=== PATIENT | male | born 1970 | race Caucasian/White ===

== ENCOUNTER 2022-10-30 08:58 | Emergency (ER) | payer SELFPAY ==
[~2022-10-30] VITALS: Ht 185.4 cm; Wt 76.0 kg
[2022-10-30 08:59] VITALS: BP 138/102; TEMP 97.2; O2SAT 99
== END 2022-10-30 10:10 | disposition left against medical advice (07) ==
LOC: M ED 08:58
DX: Z53.21 Procedure and treatment not carried out due to patient leaving prior to being seen by health care provider (principal)

== ENCOUNTER 2022-10-30 12:04 | Emergency (ER) | payer OTHER, SELFPAY ==
[~2022-10-30] VITALS: Ht 185.4 cm; Wt 80.5 kg
[2022-10-30 12:04] VITALS: TEMP 97.8
[2022-10-30 19:00] VITALS: BP 138/91; O2SAT 99
[2022-10-30] MEDS ORDERED: NS 1,000 ML IV ONE (19:30)
== END 2022-10-30 20:10 | disposition left against medical advice (07) ==
LOC: M ED 12:04
DX: F11.23 Opioid dependence with withdrawal (principal); I10 Essential (primary) hypertension; Z53.9 Procedure and treatment not carried out, unspecified reason

== ENCOUNTER 2023-07-27 10:28 | Day surgery (SDC) | payer OTHER ==
[~2023-07-27] VITALS: Ht 185.4 cm; Wt 69.0 kg
[~2023-07-27 10:28] MED LIST: BUPR8SUB SL; LOSA25TA13 PO; NS 1,000 ML IV ONE; OMEP40CA4 PO
[2023-07-27] MEDS ORDERED: propofoL 200 MG/20 ML VIAL As Ordered ONE (11:59)
[2023-07-27] MEDS ORDERED: ONDANSETRON 4MG 2ML VIAL As Ordered ONE (12:25)
[2023-07-27 12:47] VITALS: TEMP 98
[2023-07-27 13:10] VITALS: BP 138/76; O2SAT 100
== END 2023-07-27 13:32 | disposition home or self-care (01) ==
LOC: M OPP 10:28
PROVIDERS: ATTEND Internal Medicine Gastroenterology
DX: Z12.11 Encounter for screening for malignant neoplasm of colon (principal); D12.4 Benign neoplasm of descending colon; K63.5 Polyp of colon; K64.8 Other hemorrhoids; K64.4 Residual hemorrhoidal skin tags; K57.30 Diverticulosis of large intestine without perforation or abscess without bleeding; K21.00 Gastro-esophageal reflux disease with esophagitis, without bleeding; K29.70 Gastritis, unspecified, without bleeding; K31.A0 Gastric intestinal metaplasia, unspecified; K22.2 Esophageal obstruction; F17.200 Nicotine dependence, unspecified, uncomplicated; Z79.2 Long term (current) use of antibiotics; Z79.891 Long term (current) use of opiate analgesic; Z79.899 Other long term (current) drug therapy; Z88.1 Allergy status to other antibiotic agents
CPT/HCPCS: 43239; 43249; 45380; 45385; 88305; J2405

== ENCOUNTER → 2023-08-18 | Outpatient (CLI) | payer OTHER ==
[~2023-08-18] MED LIST changes: +ISOVUE-300 61% 100ML VIAL As Ordered ONE; +LIDOCAINE 1% MDV 20ML VIAL As Ordered ONE; -NS 1,000 ML IV ONE; +TRIAMCINOLONE ACETONIDE SUSP 40MG/ML 1ML VIAL As Ordered ONE
== END ==
LOC: M RAD 14:55
PROVIDERS: ATTEND Orthopaedic Surgery
DX: M19.021 Primary osteoarthritis, right elbow (principal)
CPT/HCPCS: 20605; 77002; J3301; Q9967

== ENCOUNTER → 2023-08-19 | Outpatient (CLI) | payer OTHER ==
[~2023-08-19] MED LIST changes: -ISOVUE-300 61% 100ML VIAL As Ordered ONE; -LIDOCAINE 1% MDV 20ML VIAL As Ordered ONE; -TRIAMCINOLONE ACETONIDE SUSP 40MG/ML 1ML VIAL As Ordered ONE
[2023-08-19 18:46] LABS: BASO % 0.1 % (0.0-1.0); EOS % 0.1 % (0.0-3.0); HEMATOCRIT 42.2 % (42.0-52.0); HEMOGLOBIN 13.9 g/dl (13.5-17.5); LYMPH # 1.8 10^3/uL (1.5-5.0); LYMPH % 14.7 % (24.0-44.0); MEAN CORPUSCULAR HEMOGLOBIN 27.8 pg (27.0-33.0); MEAN CORPUSCULAR HGB CONC 32.9 g/dl (32.0-36.5); MEAN CORPUSCULAR VOLUME 84.4 fl (80.0-96.0); MONO # 1.2 10^3/uL (0.0-0.8); MONO % 9.3 % (2.0-8.0); NEUTROPHILS # 9.4 10^3/uL (1.5-8.5); NEUTROPHILS % 75.4 % (36.0-66.0); PLATELET COUNT, AUTOMATED 342 10^3/uL (150-450); WHITE BLOOD COUNT 12.4 10^3/uL (4.0-10.0)
[2023-08-19 18:53] LABS: ERYTHROCYTE SEDIMENTATION RATE 12 mm/hr (0-20)
[2023-08-19 19:09] LABS: URIC ACID 4.1 MG/DL (3.7-9.2)
[2023-08-19 19:10] LABS: C REACTIVE PROTEIN QUANTITATIV < 0.40 MG/DL (<1.0)
[2023-08-19 19:14] LABS: RHEUMATOID FACTOR QUANT < 3.5 IU/ML (<14)
== END ==
LOC: M PLALAB 15:59
PROVIDERS: ATTEND Physician Assistant Surgical
DX: M51.34 Other intervertebral disc degeneration, thoracic region (principal)

== ENCOUNTER → 2023-12-09 | Outpatient (CLI) | payer OTHER ==
[2023-12-09 13:12] LABS: URIC ACID 5.9 MG/DL (3.7-9.2)
[2023-12-09 13:13] LABS: C REACTIVE PROTEIN QUANTITATIV < 0.40 MG/DL (<1.0)
[2023-12-09 13:15] LABS: BASO % 0.5 % (0.0-1.0); EOS # 0.1 10^3/uL (0.0-0.5); EOS % 1.5 % (0.0-3.0); HEMATOCRIT 39.6 % (42.0-52.0); HEMOGLOBIN 13.3 g/dl (13.5-17.5); LYMPH # 2.6 10^3/uL (1.5-5.0); LYMPH % 29.4 % (24.0-44.0); MEAN CORPUSCULAR HEMOGLOBIN 28.2 pg (27.0-33.0); MEAN CORPUSCULAR HGB CONC 33.6 g/dl (32.0-36.5); MEAN CORPUSCULAR VOLUME 83.9 fl (80.0-96.0); MONO # 0.8 10^3/uL (0.0-0.8); MONO % 9.6 % (2.0-8.0); NEUTROPHILS # 5.1 10^3/uL (1.5-8.5); NEUTROPHILS % 58.7 % (36.0-66.0); PLATELET COUNT, AUTOMATED 273 10^3/uL (150-450); RED BLOOD COUNT 4.72 10^6/uL (4.30-6.10); RHEUMATOID FACTOR QUANT < 3.5 IU/ML (<14); WHITE BLOOD COUNT 8.7 10^3/uL (4.0-10.0)
[2023-12-09 15:35] LABS: ERYTHROCYTE SEDIMENTATION RATE 7 mm/hr (0-20)
[2023-12-10 14:16] LABS: ANA SCREEN, IFA NEGATIVE (NEGATIVE)
[2023-12-11 02:22] LABS: IgG P18 AB REACTIVE; IgG P23 AB NON-REACTIVE; IgG P28 AB NON-REACTIVE; IgG P30 AB NON-REACTIVE; IgG P39 AB NON-REACTIVE; IgG P41 AB NON-REACTIVE; IgG P45 AB NON-REACTIVE; IgG P58 AB NON-REACTIVE; IgG P66 AB NON-REACTIVE; IgG P93 AB NON-REACTIVE; IgM P23 AB NON-REACTIVE; IgM P39 AB REACTIVE; IgM P41 AB NON-REACTIVE; LYME IgG WB INTERPRETATION NEGATIVE (NEGATIVE); LYME IgM WB INTERPRETATION NEGATIVE (NEGATIVE)
[2023-12-13 16:07] LABS: LYME TOTAL ANTIBODY CIA <= 0.90 Index (<=0.90)
== END ==
LOC: M PLALAB 10:02
PROVIDERS: ATTEND Physician Assistant
DX: M19.042 Primary osteoarthritis, left hand (principal)

== ENCOUNTER → 2023-12-10 | Outpatient (REF) | LOC: M PLAIMG 15:03 | PROVIDERS: ATTEND Internal Medicine | DX: R52 Pain, unspecified (principal) ==

== ENCOUNTER 2024-05-19 09:21 | Day surgery (SDC) | payer OTHER ==
[~2024-05-19] VITALS: Ht 185.4 cm; Wt 77.6 kg
[~2024-05-19 09:21] MED LIST changes: +IBUP200C25 PO; +LIDOCAINE 2% 100MG/5ML SDV (FOR ANES.) As Ordered ONE; +NS 250 ML IV ONE; +propofoL 200 MG/20 ML VIAL As Ordered ONE
[2024-05-19 11:10] VITALS: TEMP 99.1
[2024-05-19 11:32] VITALS: BP 125/80; O2SAT 97
== END 2024-05-19 11:39 | disposition home or self-care (01) ==
LOC: M OPP 09:21
PROVIDERS: ATTEND Internal Medicine Gastroenterology
DX: K22.4 Dyskinesia of esophagus (principal); K22.2 Esophageal obstruction; R12 Heartburn; R13.10 Dysphagia, unspecified; Z88.1 Allergy status to other antibiotic agents; Z79.899 Other long term (current) drug therapy; F17.210 Nicotine dependence, cigarettes, uncomplicated; F11.11 Opioid abuse, in remission
CPT/HCPCS: 43249; A4649

== ENCOUNTER 2025-04-09 08:00 | Emergency (ER) | payer MEDICAID, OTHER ==
[~2025-04-09] VITALS: Ht 185.4 cm; Wt 76.0 kg
[~2025-04-09 08:00] MED LIST changes: -LIDOCAINE 2% 100MG/5ML SDV (FOR ANES.) As Ordered ONE; -NS 250 ML IV ONE; -propofoL 200 MG/20 ML VIAL As Ordered ONE
[2025-04-09] MEDS: ONDANSETRON 4MG/2ML VIAL IV ONE (10:13)
[2025-04-09] MEDS: TETANUS/DIPHTH/ACEL. PERTUSSIS 0.5 ML SYR IM ONE (10:20)
[2025-04-09] MEDS: PANTOPRAZOLE 40MG VIAL IV ONE (10:50)
[2025-04-09 10:59] VITALS: TEMP 98.6
[2025-04-09 11:15] VITALS: BP 137/83; O2SAT 99
== END 2025-04-09 11:19 | disposition short-term general hospital (02) ==
LOC: M ED 08:00
DX: T18.190A Other foreign object in esophagus causing compression of trachea, initial encounter (principal); I10 Essential (primary) hypertension; K21.9 Gastro-esophageal reflux disease without esophagitis; F43.10 Post-traumatic stress disorder, unspecified; Z88.1 Allergy status to other antibiotic agents; Z79.1 Long term (current) use of non-steroidal anti-inflammatories (NSAID); Z79.899 Other long term (current) drug therapy
CPT/HCPCS: 71045; 74018; 80047; 96374; 96375; 99285; J2405; J2470; J3360

== ENCOUNTER 2025-04-11 21:21 | Emergency (ER) | payer OTHER ==
[~2025-04-11] VITALS: Ht 185.4 cm; Wt 73.6 kg
[~2025-04-11 21:21] MED LIST changes: -COLA100C5 PO
[2025-04-11 21:23] VITALS: TEMP 96.9
[2025-04-11] MEDS ORDERED: COLA100C5 PO (23:47)
[2025-04-11] MEDS: DOCUSATE SODIUM 100 MG CAPSULE PO ONE (23:56)
[2025-04-12] VITALS: BP 129/84; O2SAT 98
== END 2025-04-12 00:17 | disposition home or self-care (01) ==
LOC: M ED 21:21
DX: T18.8XXA Foreign body in other parts of alimentary tract, initial encounter (principal); F41.1 Generalized anxiety disorder; I10 Essential (primary) hypertension; Z88.1 Allergy status to other antibiotic agents; Z79.1 Long term (current) use of non-steroidal anti-inflammatories (NSAID); Z79.899 Other long term (current) drug therapy; Y92.009 Unspecified place in unspecified non-institutional (private) residence as the place of occurrence of the external cause; Y93.89 Activity, other specified; Y99.9 Unspecified external cause status

== ENCOUNTER → 2025-04-11 | Outpatient (CLI) | payer OTHER ==
[~2025-04-11] MED LIST changes: +COLA100C5 PO
== END ==
LOC: M WUC 10:09
PROVIDERS: ATTEND Nurse Practitioner Family
DX: T18.2XXD Foreign body in stomach, subsequent encounter (principal)

== ENCOUNTER 2025-04-13 16:24 | Emergency (ER) | payer OTHER ==
[~2025-04-13] VITALS: Ht 185.4 cm; Wt 73.4 kg
[2025-04-13 17:30] VITALS: BP 150/89
[2025-04-13 17:45] VITALS: TEMP 97.4; O2SAT 100
== END 2025-04-13 17:55 | disposition home or self-care (01) ==
LOC: M ED 16:24
DX: T18.9XXA Foreign body of alimentary tract, part unspecified, initial encounter (principal); W26.8XXA Contact with other sharp object(s), not elsewhere classified, initial encounter; K21.9 Gastro-esophageal reflux disease without esophagitis; I10 Essential (primary) hypertension; F43.10 Post-traumatic stress disorder, unspecified; Y99.8 Other external cause status

== ENCOUNTER → 2025-04-13 | Outpatient (CLI) | payer OTHER ==
[~2025-04-13] MED LIST changes: +COLA100C5 PO
== END ==
LOC: M RAD 12:48
PROVIDERS: ATTEND Nurse Practitioner Family
DX: T18.2XXA Foreign body in stomach, initial encounter (principal)